=== PATIENT | male | born 1990 | race Caucasian/White ===

== ENCOUNTER 2018-07-05 21:15 | Emergency (ER) | payer MEDICAID ==
[~2018-07-05] VITALS: Ht 188 cm; Wt 77.1 kg
[2018-07-05 21:47] LABS: BASOPHILS % (AUTO) 0.6 % (0.0-2.0); EOSINOPHILS % (AUTO) 1.4 % (0.0-3.0); LYMPHOCYTES % (AUTO) 31.5 % (20.0-45.0); MEAN CORPUSCULAR VOLUME 92 FL (80-99); MONOCYTES % (AUTO) 6.2 % (1.0-10.0); NEUTROPHILS % (AUTO) 60.2 % (45.0-75.0); PLATELET COUNT 241 K/UL (150-450); RED BLOOD COUNT 4.58 M/UL (4.70-6.10); WHITE BLOOD COUNT 10.6 K/UL (4.8-10.8)
--- NOTE | 2018-07-05 21:51 | Emergency Room Report ---
History of Present Illness General Chief Complaint: Overdose Source: Patient, EMS Present Illness HPI 27-year-old male with no medical problems other than history of occasional narcotic use is brought in by ambulance after he was unresponsive in a gas station parking lot inside of his car when his girlfriend went into the convenience store and then came back out and found that he was unable to be aroused. EMS was called, they gave the patient 2 sprays of Narcan, and he woke up with full sensorium and no complaints. He reports that he just took a very tiny amount of fentanyl that he injected today during the time his girlfriend went into the convenience store. He reports he is not addicted to narcotics, and that he just got long term and this was his first time using again. Patient has no complaints currently. Allergies: Coded Allergies: No Known Allergies (Unverified , 07/05/18) Patient History Past Medical History: see triage record Social History: Reports: drug use Reviewed Nursing Documentation: PMH: Agreed; PSxH: Agreed Nursing Documentation-PMH Past Medical History: No Stated History Review of Systems All Other Systems: negative except mentioned in HPI Physical Exam Vital Signs Date Time Temp Pulse Resp B/P (MAP) Pulse Ox O2 Delivery O2 Flow Rate FiO2 07/05/18 21:10 98.6 80 16 140/100 98 Room Air 98.6 Sp02 EP Interpretation: reviewed, normal General Appearance: no apparent distress, alert, non-toxic Head: normocephalic Eyes: bilateral eye normal inspection, bilateral eye PERRL, bilateral eye EOMI ENT: normal ENT inspection, hearing grossly normal, normal pharynx, no angioedema, normal voice, moist mucus membranes Neck: normal inspection, full range of motion, supple, supple/symm/no masses Respiratory: chest non-tender, lungs clear, normal breath sounds, chest symmetrical, palpation of chest normal Cardiovascular #1: normal peripheral pulses, regular rate, rhythm Cardiovascular #2: 2+ radial (R), 2+ radial (L) Gastrointestinal: normal inspection, non tender, soft, no mass, no guarding, no rebound Rectal: deferred Genitourinary: normal inspection, no CVA tenderness Musculoskeletal: back normal, gait/station normal, normal range of motion, non- tender Neurologic: alert, oriented x3, responsive, wastewater superintendent III-XII nml as tested, motor strength/tone normal, sensory intact, normal gait, speech normal Psychiatric: judgement/insight normal, memory normal, mood/affect normal, no suicidal/homicidal ideation Skin: normal color, no rash, warm/dry, normal turgor, other - Track montemayor right forearm, no erythema no warmth no tenderness Lymphatic: no adenopathy Medical Decision Making Diagnostic Impression: Primary Impression: Drug overdose ER Course Patient monitored for 2 hours, no further doses of Narcan were necessary, he'll be given prescription for 9, [facility]. EKG Diagnostic Results EKG Time: 21:36 EP Interpretation: Normal sinus rhythm, rate 90, no ST segment changes, no T- wave inversions Rate: normal Rhythm: NSR ST Segments: no acute changes ASA given to the pt in ED: No Rhythm Strip Diag. Results Rhythm Strip Time: 21:51 Rate: 88 Rhythm: NSR, no PVC's, no ectopy Last Vital Signs Date Time Temp Pulse Resp B/P (MAP) Pulse Ox O2 Delivery O2 Flow Rate FiO2 07/05/18 21:10 98.6 80 16 140/100 98 Room Air 98.6 Status: unchanged Disposition: HOME, SELF-CARE Condition: Stable Referrals: [facility],REFERRING (PCP) CARLO HIGGINS M.D Jul 05, 2018 21:51
[2018-07-05 21:56] LABS: ANION GAP 1 mmol/L (5-15); BLOOD UREA NITROGEN 14 mg/dL (7-18); CARBON DIOXIDE 32 MMOL/L (21-32); CHLORIDE 106 MMOL/L (98-107); CREATININE 0.9 MG/DL (0.55-1.30); POTASSIUM 4.1 MMOL/L (3.5-5.1); SODIUM 139 MMOL/L (136-145)
[2018-07-05 22:00] LABS: ALANINE AMINOTRANSFERASE 103 U/L (12-78); ALBUMIN 3.4 G/DL (3.4-5.0); ALBUMIN/GLOBULIN RATIO 0.9 (1.0-2.7); ALKALINE PHOSPHATASE 89 U/L (46-116); ASPARTATE AMINO TRANSFERASE 36 U/L (15-37); BILIRUBIN,TOTAL 0.2 MG/DL (0.2-1.0)
[2018-07-05 22:07] VITALS: BP 130/70
[2018-07-05] MEDS ORDERED: NARCAN4 MG NS (23:08)
[2018-07-05 23:23] VITALS: BP 130/70
--- NOTE | 2018-07-06 15:59 | Cardiology Report ---
APPROVED REPORT EKG Measurement Heart [id number] Normal sinus rhythm Incomplete right bundle branch block Borderline ECG
== END 2018-07-05 23:23 | disposition home or self-care (01) ==
LOC: EDBD 21:15 → EMR 21:44
DX: T40.4X1A Poisoning by other synthetic narcotics, accidental (unintentional), initial encounter (principal); Y92.481 Parking lot as the place of occurrence of the external cause
CPT/HCPCS: 36415; 80053; 80307; 84484; 85025; 93005; 99283